=== PATIENT | male | born 1955 | race African-American/Black ===

== ENCOUNTER 2018-08-09 15:19 | Observation (INO) | payer MEDICAID ==
[~2018-08-09] VITALS: Ht 182.9 cm; Wt 80.7 kg
[2018-08-09] MEDS ORDERED: HYDROCHLOROTHIA25 MG PO (15:24)
[2018-08-09] MEDS ORDERED: NORVASC10 MG PO (15:25)
[2018-08-09] MEDS ORDERED: TENORMIN25 MG PO (15:25)
[2018-08-09 16:14] LABS: APPEARANCE CLEAR (CLEAR); COLOR YELLOW (YELLOW)
[2018-08-09 16:15] LABS: BASOPHILS 0.4 % (0-2); BILIRUBIN NEGATIVE (NEGATIVE); GLUCOSE NEGATIVE (NEGATIVE); HEMATOCRIT 42.3 % (42.0-54.0); HEMOGLOBIN 13.3 g/dL (13.5-17.5); IMMATURE GRANULOCYTES 0.4 % (0-5); KETONE NEGATIVE (NEGATIVE); LYMPHOCYTES 22.9 % (15-50); MCH 25.9 pg (26.0-34.0); MCHC 31.4 g/dL (31.0-37.0); MCV 82.5 fL (80.0-100.0); MEAN PLATELET VOLUME 10.1 fL (7.4-10.4); MONOCYTES 7.1 % (2-11); NEUTROPHILS 68.2 % (40-80); NITRITE NEGATIVE (NEGATIVE); PLATELET COUNT 163 10x3/uL (130-400); PROTEIN 1+ mg/dL (NEGATIVE); RBC 5.13 10x6/uL (4.20-6.10); RDW 14.7 % (11.5-14.5); UROBILINOGEN NORMAL (NORMAL); WBC 5.1 10x3/uL (4.8-10.8)
[2018-08-09 16:17] LABS: BACTERIA FEW /hpf (NONE SEEN); WHITE CELLS - URINE 0-5 /hpf (0-5)
[2018-08-09 16:32] LABS: ALBUMIN 4.1 g/dL (3.4-5.0); ANION GAP 15.9 mmol/L (8-16); BILIRUBIN - TOTAL 0.83 mg/dL (0.2-1.3); CALCIUM 9.3 mg/dL (8.5-10.1); CARBON DIOXIDE 27.5 mmol/L (21.0-32.0); CREATININE - SERUM 1.9 mg/dL (0.6-1.3); POTASSIUM - SERUM 4.4 mmol/L (3.5-5.1); PROTEIN - SERUM 7.8 g/dL (6.4-8.2)
[2018-08-09] MEDS ORDERED: BACLOFEN10 MG PO (20:25)
[2018-08-09 21:04] VITALS: BP 122/81
[2018-08-10 00:56] VITALS: BP 137/86
[2018-08-10 03:18] VITALS: BP 137/86; BMI 25.2
[2018-08-10 04:22] VITALS: BP 124/69
[2018-08-10 04:33] LABS: BASOPHILS 0.2 % (0-2); EOSINOPHILS 0.2 % (0-7); HEMATOCRIT 38.6 % (42.0-54.0); IMMATURE GRANULOCYTES 0.5 % (0-5); MCH 25.6 pg (26.0-34.0); MCHC 31.1 g/dL (31.0-37.0); MCV 82.3 fL (80.0-100.0); MEAN PLATELET VOLUME 9.3 fL (7.4-10.4); MONOCYTES 7.8 % (2-11); NEUTROPHILS 45.3 % (40-80); PLATELET COUNT 133 10x3/uL (130-400); RBC 4.69 10x6/uL (4.20-6.10); RDW 14.7 % (11.5-14.5); WBC 4.4 10x3/uL (4.8-10.8)
[2018-08-10 04:46] LABS: ANION GAP 8.8 mmol/L (8-16); CALCIUM 8.3 mg/dL (8.5-10.1); CARBON DIOXIDE 30.6 mmol/L (21.0-32.0); CREATININE - SERUM 1.7 mg/dL (0.6-1.3); POTASSIUM - SERUM 4.4 mmol/L (3.5-5.1)
[2018-08-10 07:49] VITALS: BP 105/64
[2018-08-10 10:47] LABS: % SATURATION 19 % (15-55); IRON 45 ug/dl (35-150); TOTAL IRON BIND CAPACITY 234 ug/dl (260-445); UNSAT IRON BIND CAPACITY 189 ug/dl (150-375)
[2018-08-10 11:01] LABS: FERRITIN 132 ng/mL (3-244); LIPASE 177 U/L (73-393)
[2018-08-10 13:01] VITALS: Ht 182.9 cm; Wt 80.7 kg
[2018-08-10 13:39] LABS: INR 1.23 (0.85-1.17)
[2018-08-10 18:17] VITALS: BP 138/79
[2018-08-10 20:29] VITALS: BP 125/83
[2018-08-11 01:10] VITALS: BP 152/82
[2018-08-11 05:13] LABS: BASOPHILS 0.2 % (0-2); EOSINOPHILS 0.9 % (0-7); HEMOGLOBIN 11.6 g/dL (13.5-17.5); IMMATURE GRANULOCYTES 0.2 % (0-5); LYMPHOCYTES 32.2 % (15-50); MCH 25.2 pg (26.0-34.0); MCHC 30.5 g/dL (31.0-37.0); MCV 82.6 fL (80.0-100.0); MEAN PLATELET VOLUME 9.4 fL (7.4-10.4); MONOCYTES 9.1 % (2-11); NEUTROPHILS 57.4 % (40-80); PLATELET COUNT 129 10x3/uL (130-400); RDW 14.7 % (11.5-14.5); WBC 4.5 10x3/uL (4.8-10.8)
[2018-08-11 05:22] LABS: CALCIUM 8.2 mg/dL (8.5-10.1); CREATININE - SERUM 1.6 mg/dL (0.6-1.3)
[2018-08-11 06:18] VITALS: BP 135/84
[2018-08-11 10:22] LABS: FOLATE (FOLIC ACID) - SERUM 16.6 ng/mL (>3.0)
[2018-08-11 11:52] VITALS: BP 121/75
[2018-08-11] MEDS ORDERED: PROTONIX40 MG PO (15:12)
== END 2018-08-11 17:45 | disposition home or self-care (01) ==
LOC: D.ER 15:19 → D.M2 20:11 → OBSVTIME 20:11 → D.M2 20:11
PROVIDERS: Family Medicine; Internal Medicine Nephrology
DX: N17.9 Acute kidney failure, unspecified (principal); E86.9 Volume depletion, unspecified; D50.9 Iron deficiency anemia, unspecified; F17.213 Nicotine dependence, cigarettes, with withdrawal; R16.0 Hepatomegaly, not elsewhere classified; I10 Essential (primary) hypertension; G89.29 Other chronic pain; M54.9 Dorsalgia, unspecified